=== PATIENT | male | born 1985 | race Caucasian/White ===

== ENCOUNTER 2024-04-25 17:26 | Emergency (ER) | payer BC, SELFPAY ==
[2024-04-25 17:32] VITALS: BP 135/89; PULSE 82; RESP 16; TEMP 36.1; O2SAT 97; BMI 34.3
--- NOTE | 2024-04-25 17:56 | ED_ITS ---
HPI - General Adult General Date Seen: 04/25/24 Chief complaint: Ear/Nose/Throat Problem Stated complaint: Throat hurts, painful to swallow Time Seen by Provider: 04/25/24 17:27 Source: patient Mode of arrival: ambulatory Limitations: no limitations History of Present Illness HPI narrative: Patient is a 38-year-old male with no pertinent medical problems presenting to the emergency department for sore throat. Symptoms have been going on for the past couple days. States the pain is both cells left side. Pain is tolerable at rest but pain does become was 6-7 intensity when he swallow. Also knows the day pain was getting worse or talking but does note he was on a long conference call today. Before today ibuprofen has been his head doing the pain for the most part. Denies fevers, chills. Not aware of any sick contacts. Has not noticed any changes in his voice. Denies difficulty breathing or swallowing. Related Data Home Medications ?Medication ?Instructions ?Recorded ?Confirmed cabergoline 0.5 mg tablet 0.5 mg PO 2XW 10/07/22 10/07/22 Previous Rx's ?Medication ?Instructions ?Recorded epinephrine 0.3 mg/0.3 mL 0.3 mg (0.3 mL) IM ONCE #2 ea 11/22/22 injection, auto-injector Allergies Allergy/AdvReac Type Severity Reaction Status Date / Time No Known Drug Allergies Allergy Verified 04/25/24 18:20 Review of Systems Narrative: Pertinent systems reviewed and were negative unless stated in HPI [facility] PFS Medical History Fever ?R50.9 - Fever, unspecified (ICD-10) Fever ?R50.9 - Fever, unspecified (ICD-10) Sore throat ?J02.9 - Acute pharyngitis, unspecified (ICD-10) Social History Smoking Status: Never smoker Do you use any of these nicotine containing products: None How often do you have a drink containing alcohol: never AUDIT-C Alcohol total score: 0 Non-prescribed substance use: denies use service: No Exam Narrative: Exam Narrative: Const: Well-nourished, Well-developed, in mild distress Eyes: PERRL, no conjunctival injection, and symmetrical lids HENT: Atraumatic external nose and ears. Moist mucous membranes. Uvula midline, no tonsillar exudates or swelling. No mastoid tenderness Neck: Symmetric, trachea midline, No thyromegaly. CVS: RRR, No murmurs or gallops. Peripheral pulses 2+ and equal in all extremities RESP: Unlabored respiratory effort. Clear to auscultation bilaterally. GI: Nontender/Nondistended, No rebound or guarding. MSK:Extremities w/o deformity, Normal Active ROM Skin: Warm, Dry. No rashes or lesions. Neuro: Normal Muscle tone, No focal neurological deficits. Psych: Awake, Alert, & Oriented x3. Appropriate mood and affect. Const: Vital Signs, click to edit/add: Vital Signs - 24 hr 04/25/24 17:32 Temperature 97 F L Pulse Rate [Left R adial] 82 Respiratory Rate 16 Blood Pressure [Ri ght Upper Arm] 135/89 Pulse Oximetry 97 Oxygen Delivery Me thod Room Air Course Vital Signs Vital signs: Initial Vital Signs Temperature 97 F L 04/25/24 17:32 Temperature Source Temporal Artery Scan 04/25/24 17:32 Pulse Rate 82 04/25/24 17:32 Pulse Rhythm Regular 04/25/24 17:32 Respiratory Rate 16 04/25/24 17:32 Blood Pressure 135/89 04/25/24 17:32 Blood Pressure Mean 104 04/25/24 17:32 Pulse Oximetry 97 04/25/24 17:32 Oxygen Delivery Method Room Air 04/25/24 17:32 Vital Signs Temperature 97 F L 04/25/24 17:32 Pulse Rate 82 04/25/24 17:32 Respiratory Rate 16 04/25/24 17:32 Blood Pressure 135/89 04/25/24 17:32 Pulse Oximetry 97 04/25/24 17:32 Oxygen Delivery Method Room Air 04/25/24 17:32 Temperature 97 F L 04/25/24 17:32 Pulse Rate 82 04/25/24 17:32 Respiratory Rate 16 04/25/24 17:32 Blood Pressure 135/89 04/25/24 17:32 Pulse Oximetry 97 04/25/24 17:32 Oxygen Delivery Method Room Air 04/25/24 17:32 Medications Administered Medications: Generic Name Dose Route Start Last Admin Trade Name Freq PRN Reason Stop Dose Admin Dexamethasone 10 mg 04/25/24 18:06 04/25/24 18:14 Dexamethasone 10 Mg/Ml Inj PO 04/25/24 18:07 10 mg ONCE ONE Administration Medical Decision Making [facility] Narrative Medical decision making narrative: Patient is a 38-year-old male presenting for sore throat. Patient is not showing signs of peritonsillar abscess, Almas angina, retropharyngeal abscess,Lemierre disease or any other concerning oral pharynx or deep neck space abscesses. Imaging is not necessary. He does complain about a little bit of pain anterior inferior to his left ear. No mastoid tenderness. Will give a dose of Decadron to help with his sore throat very test liver strep and COVID/flu/RSV. All this came back negative. His vital signs are stable. She is otherwise doing well. Most likely has pharyngitis with viral source. Will be discharged at this time. He is agreeable to this plan. Lab Data Labs: Lab Results 04/25/24 Range/Units 17:55 SARS-CoV-2 (PCR) Negative SARS-CoV-2 (Negative) Influenza Type A (PCR) Negative PCR FLU A (Negative) Influenza Type B (PCR) Negative PCR FLU B (Negative) RSV (PCR) Negative PCR RSV (Negative) Group A Strep DNA NOT DETECTED (Not Detectd) Discharge Plan Discharge Clinical Impression: Sore throat Patient Disposition: Home, Self-Care Condition: Stable Additional Instructions: Take ibuprofen or Aleve for pain. Take it regularly for the next few days and should help with her symptoms. Return for new or worsening symptoms. Prescriptions: No Action cabergoline 0.5 mg tablet 0.5 mg PO 2XW epinephrine 0.3 mg/0.3 mL auto-injector 0.3 mg IM ONCE Qty: 2 0RF Rx Instructions: as a single dose; may repeat once Follow Up/Referrals: Provider,Not a Local [Staff Physician] - Stand Alone Forms: [facility] Info Instructions
--- OUTSIDE RECORDS SUMMARY | 2024-04-25 18:05 | XMS_ITS | Referral Summary ---
Author Organization [facility] Address [address] [place] [address] Care Team Providers Care Sql Server Dba Developer Name Role Phone Sonja Barnes MD Unavailable [phone] Maty Blood MD Unavailable No Ref-Primary, Physician Primary Care Provider Encounters Date Type Department Care Team Description 04/24/2024 MyC Medical Advice [address] [phone] [place] Libia from Last 3 Months Allergies Active Allergy Reactions Criticality Noted Date Comments Phosphorated Carbohyd-Caff Anaphylaxis High 01/05/20 22 Medications Medication Sig Dispensed Refills Start Date End Date Status tadalafil (CIALIS) 20 MG tabletIndications:Erec tile dysfunction, unspecified erectile dysfunction type Take 1 tablet (20 mg) by mouth daily as needed (Ed) 30 tablet 11 01/04/2022 Active cabergoline (DOSTINEX) 0.5 MG tablet Take 0.25 mg by mouth twice a week 04/14/2022 Active Immunizations Name Administration Dates Next Due COVID-19 MONOVALENT 12+ (Pfizer) 07/07/2021,08/0 04/2021 Social History Tobacco Use Types Packs/Day Years Used Date Smoking Tobacco: Never Smokeless Tobacco: Never PHQ-2 Answer Date Recorded PHQ-2 Score 0 01/04/2022 Adolescent Education Answer Date Record ed Getting School Help Needed Not on file 07/27 Sex and Gender Information Value Date Recorded Sex Assigned at Not on file Gender Identity Not on file Sexual Orientation Not on file Last Filed Vital Signs Vital Sign Reading Time Taken Comments Blood Pressure 104/71 05/25/2022 9:57 AM CDT Pulse 78 05/25/2022 9:57 AM CDT Temperature 36.5 ??C (97.7 ??F) 01/04/2022 10:[address] Respiratory Rate 16 01/04/2022 10:50 AM CO FOUNDER Oxygen Saturation 96% 05/25/2022 9:57 AM CDT Inhaled Oxygen Concentration - - Weight 118.8 kg (262 lb) 05/25/2022 9:57 AM CDT Height - - Body Mass Index - - Plan of Treatment Upcoming Encounters Date Type Department Care Team (Late st Contact Info) Description 05/27/2024 5:00 PM CDT Office Visit [address] [phone] Ricco Urbano [address] [place] [address] [phone] 06/10/2024 5:00 PM CDT Office Visit [address] [phone] Ricco Urbano [address] [place], [place] [phone] Care Teams Sql Server Dba Developer Relationship Specialty Start Date End Date No Ref-Primary, Physician PCP - General 03/29/22 Sonja Barnes MD [address] [address] MISHEL WYNNE [id number] Assigned PCP 12/10/21 Maty Blood MD [address] [place] [address] Endocrinology, Diabetes, and Metabolism 03/29/22
--- OUTSIDE RECORDS SUMMARY | 2024-04-25 18:05 | XMS_ITS | Encounter Summary ---
Author Organization [facility] Address [address] [place] [address] Care Team Providers Care Metal Sprayer Machined Parts Name Role Phone Sonja Barnes MD Unavailable [phone] Maty Blood MD Unavailable No Ref-Primary, Physician Primary Care Provider Maty Blood MD Unavailable Encounter Details Date Type Department Care Team (Late st Contact Info) Description 08/30/2022 MyC Medical Advice [address] [phone] Maty Blood MD [address] [place] [address] Social History Tobacco Use Types Packs/Day Years Used Date Smoking Tobacco: Never Smokeless Tobacco: Never PHQ-2 Answer Date Recorded PHQ-2 Score 0 01/04/2022 Sex and Gender Information Value Date Recorded Sex Assigned at Not on file Gender Identity Not on file Sexual Orientation Not on file documented as of this encounter Plan of Treatment Upcoming Encounters Date Type Department Care Team (Late st Contact Info) Description 05/27/2024 5:00 PM CDT Office Visit [facility] [address] [place] [phone] [place] [address] [place] [address] 06/10/2024 5:00 PM CDT Office Visit [facility] [address] [place] [phone] [place] [address] [place] [address] documented as of this encounter Visit Diagnoses Not on filedocumented in this encounter Care Teams Metal Sprayer Machined Parts Relationship Specialty Start Date End Date No Ref-Primary, Physician PCP - General 03/29/22 Sonja Barnes MD [address] [address] Assigned PCP 12/10/21 Maty Blood MD [address] [place], [place] 87[address] Endocrinology, Diabetes, and Metabolism 03/29/22 Maty Blood MD [address] [place], [place] 026795 Assigned Endocrinology Provider 05/26/22 11/27/23 documented as of this encounter
--- OUTSIDE RECORDS SUMMARY | 2024-04-25 18:05 | XMS_ITS | Encounter Summary ---
Author Organization [facility] Address [address] [place] [address] Care Team Providers Care Vice President Financial Name Role Phone Sonja Barnes MD Unavailable [phone] Maty Bolod MD Unavailable No Ref-Primary, Physician Primary Care Provider Encounter Details Date Type Department Care Team (Late st Contact Info) Description 04/24/2024 MyC Medical Advice [facility] [address] [place] [phone] Libia Carvajal Social History Tobacco Use Types Packs/Day Years [...] Description 05/27/2024 5:00 PM CDT Office Visit [facility] [address] [place] [phone] [place] [address] [place] [address] 06/10/2024 5:00 PM CDT Office Visit [facility] [address] [place] [phone] [place] [address] [place] [address] documented as of this encounter Visit Diagnoses Not on filedocumented in this encounter Care Teams Vice President Financial Relationship Specialty Start Date End Date No Ref-Primary, Physician PCP - General 03/29/22 Sonja Barnes MD [address] [address] Assigned PCP 12/10/21 Maty Blood MD [address] [place] [address] Endocrinology, Diabetes, and Metabolism 03/29/22 documented as of this encounter
--- OUTSIDE RECORDS SUMMARY | 2024-04-25 18:05 | XMS_ITS | Clinical Summary ---
Author Organization [facility] Address [address] [place] [address] Care Team Providers Care Cardiac Cath Tech Name Role Phone Sonja Barnes MD Unavailable [phone] Maty Blood MD Unavailable No Ref-Primary, Physician Primary Care Provider Allergies Active Allergy Reactions Criticality Noted Date [...] by mouth twice a week 04/14/2022 Active Encounters Date Type Department Care Team Description 04/24/2024 MyC Medical Advice [address] [phone] Libia Carvajal from Last 3 Months Immunizations Name Administration Dates Next Due COVID-19 MONOVALENT 12+ (Pfizer) 07/07/2021,08/0 04/2021 Family History Medical History Relation Comments No Known Problems Father No Known Problems Mother Relation Status Comments Father Mother Social History Tobacco Use Types Packs/Day Years [...] ST Respiratory Rate 16 01/04/2022 10:50 AM GAS ROLLER OPERATOR Oxygen Saturation 96% 05/25/2022 9:57 AM CDT Inhaled Oxygen Concentration - - Weight 118.8 kg (262 lb) 05/25/2022 9:57 AM CDT Height - - Body Mass Index - - Plan of Treatment Upcoming Encounters Date Type Department Care Team (Late st Contact Info) Description 05/27/2024 5:00 PM CDT Office Visit [address] [phone] [place]co [place] [address] [place] [address] 06/10/2024 5:00 PM CDT Office Visit [address] [phone] [place] [phone] [place] [address] Health Maintenance Due Date Last Done Comments ADVANCE CARE PLANNING 1984 ANNUAL REVIEW OF HM ORDERS 1984 GLUCOSE 1984 YEARLY PREVENTIVE VISIT 1984 HIV SCREENING 1999 HEPATITIS C SCREENING 2002 HEPATITIS B IMMUNIZATION (1 of 3 - 19+ 3-dose series) 2003 DTAP/TDAP/TD IMMUNIZATION (1 - Tdap) 2009 COVID-19 Vaccine (3 - 2022-2 4 season) 2023 07/07/2021, 06/09/2021 PHQ-2 (once per calendar year) 2023 01/04/2022 INFLUENZA VACCINE (Season Ended) 2024 HPV IMMUNIZATION Aged Out No longer e ligible based on patient's age to complete this topic IPV IMMUNIZATION Aged Out No longer e ligible based on patient's age to complete this topic MENINGITIS IMMUNIZATION Aged Out No l onger eligible based on patient's age to complete this topic Pneumococcal Vaccine: Pediatrics (0 to 5 Years) and At-Risk Patients (6 to 64 Years) Aged Out No longer eligible b ased on patient's age to complete this topic RSV MONOCLONAL ANTIBODY Aged Out No l onger eligible based on patient's age to complete this topic Care Teams Cardiac Cath Tech Relationship Specialty Start Date End Date No Ref-Primary, Physician PCP - General 03/29/22 Sonja Barnes MD [address] [facility] [address] [place], [place] 2546[address] Assigned PCP 12/10/21 Maty Blood MD [address] [place], [place] 3660[address] Endocrinology, Diabetes, and Metabolism 03/29/22
--- OUTSIDE RECORDS SUMMARY | 2024-04-25 18:06 | XMS_ITS | Encounter Summary ---
Author Organization [facility] [address] [place] [address] Care Team Providers Care Playground Equipment Erector Name Role Phone Unassigned, Provider Primary Care Provider Unava ilable Reason for Visit * Reason Comments Prior Authorization For Imaging Encounter Details Date Type Department Care Team (Late st Contact Info) Description 04/10/2024 Telephone [facility] Endocrinology [address] [facility] [place] [phone] Venkatesh Castrejon MD [address] [place], [place] [phone] Prior Authorization For Imaging Social History Tobacco Use Types Packs/Day Years Used Date Smoking Tobacco: Never Smokeless Tobacco: Never Sex and Gender Information Value Date Recorded Sex Assigned at Not on file Gender Identity Not on file Sexual Orientation Not on file documented as of this encounter Nursing Notes * Pam Jasso RN - 04/15/2024 8:18 AM CDT Images from the original note were not included. PA approved. Pt has been advised to schedule. See refill TE. Pam Kincaid RN 04/15/2024 8:19 AM * Lito Harding - 04/10/2024 6:25 AM CDT Notify care team PA is still pending for the following service. PA PENDING Date Entered: 04/10/24 6:17 AM CPT: 07996 Procedure: MRI BRAIN STEM W/O & W/DYE DX: D35.2 DOS: 04/12/2024 Inpatient/Outpatient: Outpatient Provider: Venkatesh Castrejon Location: RADIOLOGY Reference #: n/a [facility] Contact/Submission: Mam[facility] Clinicals Sent: 01/02/2023 Venkatesh Castrejon OV, 04/06/2024 & 04/05/2023 Labs, 12/30/2022 MR Brain W/WO report documented in this encounter Plan of Treatment Upcoming Encounters Date Type Department Care Team (Late st Contact Info) Description 09/09/2024 9:00 AM SPECIAL EDUCATION PARAEDUCATOR Appointment [facility] Endocrinology [address] [facility] [place] [phone] Venkatesh Castrejon MD [address] [place] [address] documented as of this encounter Visit Diagnoses Not on filedocumented in this encounter Care Teams Playground Equipment Erector Relationship Specialty Start Date End Date Unassigned, Provider [address] [place] [address] PCP - General Unknown Physician Specialty 04/02/24 documented as of this encounter
--- OUTSIDE RECORDS SUMMARY | 2024-04-25 18:06 | XMS_ITS | Encounter Summary ---
Author Organization [facility] Address [address] [place] [address] Care Team Providers Care Patient Ombudsperson Name Role Phone Unassigned, Provider Primary Care Provider Unava ilable Reason for Visit * Reason Comments Refill cabergoline (DOSTINE X) 0.5 MG tablet [Pharmacy Med Name: CABERGOLINE 0.5MG TABS] Encounter Details Date Type Department Care Team (Late st Contact Info) Description 04/10/2024 Refill [facility] [address] [place] [address]. [place], [place] [phone] Braxton Castrejon MD [address] [place] [phone] Refill (cabergoline (DOSTINEX) 0.5 MG tablet [Pharmacy Med Name: CABERGOLINE 0.5MG TABS]) Social History Tobacco Use Types Packs/Day Years Used Date Smoking Tobacco: Never Smokeless Tobacco: Never Sex and Gender Information Value Date Recorded Sex Assigned at Not on file Gender Identity Not on file Sexual Orientation Not on file documented as of this encounter Nursing Notes * Pam Jasso RN - 04/13/2024 1:41 PM CDT Medication refilled per standing order. Pam Kincaid RN 04/13/2024 1:41 PM * Websjennifer, [facility] [employer] - 04/10/2024 1:33 PM CDT cabergoline (DOSTINEX) 0.5 MG tablet [Pharmacy Med Name: CABERGOLINE 0.5MG TABS] Hyperprolactinemia -> An office visit is overdue (performed over 15 months ago, required every 12 months). Last qualifying visit: 01/02/2023 (in Endocrinology with BRAXTON CASTREJON) Next scheduled visit: 09/09/2024 (in Endocrinology with BRAXTON CASTREJON) Last ordered by BRAXTON CASTREJON: 01/02/2024 (99 days ago) QTY: 24, Refills: 0, Sig: take 1 tablet (0.5 mg) by mouth two times a week. (changed but equivalent) Prolactin Level (serum): 7.2 ng/mL on 04/06/2024 [facility] Embedded Refills, Reference: [id number], 04/10/2024 1:33:27 PM CDT, Pool: OSWALDO SUILL RN ([id number]) * Chance Mathew - 04/10/2024 1:33 PM CDT The following lab order(s) may be associated with the Result Note below: PROLACTIN Notes recorded by Pam Kincaid on 04/09/2024 at 9:50 AM CDT Released to OPS. * Chance Mathew - 04/10/2024 1:33 PM CDT The following lab order(s) may be associated with the following Patient Result Comment (Entered by Pam Jasso, RN at 04/09/2024 9:50 AM): PROLACTIN Labs are stable or at goal. Continue current treatment plan and follow up as recommended at the last visit. Please e-mail or call the clinic at [phone] with any questions.Braxton Castrejon MD/zainab documented in this encounter Plan of Treatment Upcoming Encounters Date Type Department Care Team (Late st Contact Info) Description 09/09/2024 9:00 AM PERSONAL INJURY LITIGATION PARALEGAL Appointment [facility] Endocrinology [address] [facility] [place] [phone] Braxton Castrejon MD [address] [place] [phone] documented as of this encounter Visit Diagnoses Diagnosis Prolactinoma ([facility]) Benign neoplasm of pituitary gland and craniopharyngeal duct (pouch) documented in this encounter Care Teams Patient Ombudsperson Relationship Specialty Start Date End Date Unassigned, Provider [address] [place] [address] PCP - General Unknown Physician Specialty 04/02/24 documented as of this encounter
--- OUTSIDE RECORDS SUMMARY | 2024-04-25 18:06 | XMS_ITS | Encounter Summary ---
Author Organization [facility] Address [address] [address] Care Team Providers Care Physician Scribe Name Role Phone Unassigned, Provider Primary Care Provider Unava ilable Reason for Visit * Reason Comments Medication Questions Entered automatical ly based on patient selection in [employer]. Encounter Details Date Type Department Care Team (Late Contact Info) Description 04/01/2024 8:45 PM CDT E-Visit [facility] Endocrinology [address] [place] [phone] Venkatesh Castrejon MD [address] [place], [place] [phone] Chief Comp: Medication Questions Social History Tobacco Use Types Packs/Day Years Used Date Smoking Tobacco: Never Smokeless Tobacco: Never Sex and Gender Information Value Date Recorded Sex Assigned at Not on file Gender Identity Not on file Sexual Orientation Not on file documented as of this encounter Plan of Treatment Upcoming Encounters Date Type Department Care Team (Late Contact Info) Description 09/09/2024 9:00 AM PEANUT SEPARATOR Appointment [facility] Endocrinology [address] [place] [address] Venkatesh Castrejon MD [address] [place] [address] documented as of this encounter Visit Diagnoses Not on filedocumented in this encounter Care Teams Physician Scribe Relationship Specialty Start Date End Date Unassigned, Provider [address] [place] [address] PCP - General Unknown Physician Specialty 04/02/24 documented as of this encounter
--- OUTSIDE RECORDS SUMMARY | 2024-04-25 18:06 | XMS_ITS | Encounter Summary ---
Author Organization [facility] Address [address] [place] [address] Care Team Providers Care Director Of Surgery Name Role Phone Sonja Barnes MD Unavailable [phone] Maty Blood MD Unavailable No Ref-Primary, Physician Primary Care Provider Maty Blood MD Unavailable Encounter Details Date Type Department Care Team (Late st Contact Info) Description 05/02/2022 MyC Medical Advice [address] [phone] Td Harding Social History Tobacco Use Types Packs/Day Years Used Date Smoking Tobacco: Never Assessed PHQ-2 Answer Date Recorded PHQ-2 Score 0 01/04/2022 Sex and Gender Information Value Date Recorded Sex Assigned at Not on file Gender Identity Not on file Sexual Orientation Not on file documented as of this encounter Miscellaneous Notes * Telephone Encounter - Td Harding - 05/22/2022 12:52 PM CDT Sooner appointment. Mychart sent. Annalise Harding [facility] Adult Endocrinology [facility] documented in this encounter Plan of Treatment Upcoming Encounters Date Type Department Care Team (Late st Contact Info) Description 05/27/2024 5:00 PM CDT Office Visit [address] [phone] [place] [address] [place] [address] 06/10/2024 5:00 PM CDT Office Visit [facility] [address] [place] [phone] YolieRicco krause [address] [place] [address] documented as of this encounter Visit Diagnoses Not on filedocumented in this encounter Care Teams Director Of Surgery Relationship Specialty Start Date End Date No Ref-Primary, Physician PCP - General 03/29/22 Sonja Barnes MD [address] [place] [address] Assigned PCP 12/10/21 Maty Blood MD [address] [place] [phone] Endocrinology, Diabetes, and Metabolism 03/29/22 Maty Blood MD [address] [place] [phone] Assigned Endocrinology Provider 05/26/22 11/27/23 documented as of this encounter
--- OUTSIDE RECORDS SUMMARY | 2024-04-25 18:06 | XMS_ITS | Encounter Summary ---
Author Organization [facility] Address [address] [address] Care Team Providers Care Billing Adjudicator Name Role Phone Unassigned, Provider Primary Care Provider Unava ilable Encounter Details Date Type Department Care Team (Late st Contact Info) Description 04/06/2024 12:20 PM CDT Lab Visit [facility] [address] [place] [address] Prolactinoma (HRC) Social History Tobacco Use Types Packs/Day Years Used Date Smoking Tobacco: Never Smokeless Tobacco: Never Sex and Gender Information Value Date Recorded Sex Assigned at Not on file Gender Identity Not on file Sexual Orientation Not on file documented as of this encounter Plan of Treatment Upcoming Encounters Date Type Department Care Team (Late st Contact Info) Description 09/09/2024 9:00 AM MULE DEVELOPER Appointment [facility] [address] [facility] [place] [address] Venkatesh Castrejon MD [address] [place] [address] documented as of this encounter Procedures Procedure Name Priority Date/Time Associated Diagnosis Comments PROLACTIN WITH REFLEX TO MACROPROLACTIN Routine 04/06/2024 12:18 PM CDT Prolactinoma (HRC) PROLACTIN Routine 04/06/2024 12:18 PM CDT Prolactinoma (HRC) documented in this encounter Results * Prolactin (04/06/2024 12:18 PM CDT) Prolactin 7.2 2.5 - 18.3 ng/mL 04/07/2024 12:17 PM CDT [facility] Blood Venipuncture / Unknown 04/06/2024 12:18 PM CDT 04/06/2024 12:18 PM CDT Venkatesh Castrejon MD LAB_1 [facility] [address] [id number] documented in this encounter Visit Diagnoses Diagnosis Prolactinoma (HRC) Benign neoplasm of pituitary gland and craniopharyngeal duct (pouch) documented in this encounter Care Teams Billing Adjudicator Relationship Specialty Start Date End Date Unassigned, Provider [address] [place] [address] PCP - General Unknown Physician Specialty 04/02/24 documented as of this encounter
--- OUTSIDE RECORDS SUMMARY | 2024-04-25 18:06 | XMS_ITS | Clinical Summary ---
Author Organization [facility] Address [address] [place] [address] Care Team Providers Care Roll Changer Name Role Phone Unassigned, Provider Primary Care Provider Unava ilable Source Comments You are receiving this document as you are listed as the primary care provider,follow-up provider, or the patient has been referred to you for consultation.This is in compliance with the Medicare and[facility] EHR Incentive Program,which states Providers who transition their patient to another setting of careor provider of care or refers their patient to another provider of care shouldprovide summary care record for each transition of care or referral. [facility] Allergies No known active allergies Medications Medication Sig Dispensed Refills Start Date End Date Status Tadalafil (CIALIS) 20 MG tabletIndication s:Prolactinoma (HRC) Take 1 tablet by mouth daily as needed for ED 30 Tablet 1 09/12/2023 Active diazePAM (VALIUM) 5 MG tablet Take 20 minutes prior to MRI 1 Tablet 04/02/2024 Active cabergoline (DOSTINEX) 0.5 MG tabletIndication s:Prolactinoma (HRC) TAKE 1 TABLET BY MOUTH TWICE WEEKLY 24 Tablet 1 04/13/2024 Active diazePAM (VALIUM) 5 MG tablet Take 20 minutes prior to MRI 1 Tablet 12/25/2022 4 Discontinued(*Med change OR same med OR reorder, new dose/directions) cabergoline (DOSTINEX) 0.5 MG tabletIndication s:Prolactinoma (HRC) Take 1 Tablet (0.5 mg) by mouth two times a week. 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 [address] [place] [address]. [place] [address] Venkatesh Castrejon MD Refill (cabergoline (DOSTINEX) 0.5 MG tablet [Pharmacy Med Name: CABERGOLINE 0.5MG TABS]) 04/10/2024 [place]phone [facility] [place] [facility] [address] [facility] [place] [address] Venkatesh Castrejon MD Prior Authorization For Imaging 04/06/2024 12:20 PM CDT Lab Visit [facility] [address] [place] [address] Prolactinoma (HRC) 04/02/2024 Telephone [facility] Call Center [address] [facility] [place] [address] Venkatesh Castrejon MD 04/02/2024 E-Visit Specialty [place] [address] [place] [address] Mychart, Generic Provider 04/01/2024 8:45 PM CDT [place] [facility] [address] [facility] [place] [address] Venkatesh Castrejon MD Chief Comp: Medication Questions 03/28/2024 [address] [facility] [address] [place] [address]. [place] [address] Venkatesh Castrejon MD Refill (cabergoline (DOSTINEX) 0.5 MG tablet [Pharmacy Med Name: CABERGOLINE 0.5MG TABS]) from Last 3 Months Social History Tobacco Use Types Packs/Day Years Used Date Smoking Tobacco: Never Smokeless Tobacco: Never Sex and Gender Information Value Date Recorded Sex Assigned at Not on file Gender Identity Not on file Sexual Orientation Not on file Last Filed Vital Signs Vital Sign Reading Time Taken Comments Blood Pressure 122/80 01/02/2023 12:30 PM HOME DEMONSTRATION AGENT Pulse 91 01/02/2023 12:30 PM HOME DEMONSTRATION AGENT Temperature - - Respiratory Rate - - Oxygen Saturation - - Inhaled Oxygen Concentration - - Weight 125.1 kg (275 lb 12.8 oz) 2022 12:30 PM HOME DEMONSTRATION AGENT Height 189.2 cm (6' 2.5) 02/05/2022 3:55 PM CDT Body Mass Index 34.94 02/05/2022 3:55 PM CDT Plan of Treatment Upcoming Encounters Date Type Department Care Team (Late st Contact Info) Description 09/09/2024 9:00 AM HOME DEMONSTRATION AGENT [place]ointment [facility] [place] [facility] [address] [facility] [place] [address] Venkatesh Castrejon MD [address] [place], [place] [phone] Health Maintenance Due Date Last Done Comments Hep C Screening (Preventive Services) 1984 HIV Screening (Preventive Services) 2000 Adult Preventive Visit 2002 DTaP/Tdap/Td (1 - Tdap) 2003 HepB (1) 2003 Cholesterol 2019 COVID-19 Vaccine (3 - 2022-2 4 season) 2023 07/07/2021, 06/09/2021 Influenza (Season Ended) 2024 Zoster/Shingles (1 of 2) 2034 HPV Vaccine Aged Out No longer eligi ble based on patient's age to complete this topic HepA Aged Out No longer eligi ble based on patient's age to complete this topic Hib Aged Out No longer eligi ble based on patient's age to complete this topic IPV (Polio) Aged Out No longer eligi ble based on patient's age to complete this topic MCV4 Aged Out No longer eligi ble based on patient's age to complete this topic Pneumococcal Aged Out No longer eligi ble based on patient's age to complete this topic Procedures Procedure Name Priority Date/Time Associated Diagnosis Comments MR BRAIN W/WO IV CONT Routine 04/12/2024 4:23 PM CDT Macroprolactinoma (HRC) PROLACTIN Routine 04/06/2024 12:18 PM CDT Prolactinoma (HRC) PROLACTIN WITH REFLEX TO MACROPROLACTIN Routine 04/06/2024 12:18 PM CDT Prolactinoma (HRC) from Last 3 Months Results * MR Brain W/WO IV Cont (04/12/2024 4:23 PM CDT) Anatomical Region Laterality Modality Head Magnetic Resonan ce 04/12/2024 3:29 PM CDT Impressions 04/14/2024 10:37 AM CDT INDICATION: macroprolactinoma ?? TECHNIQUE: ??MRI of the head with and without contrast using sella protocol, 13 mL GADOBUTROL 1 MMOL/ML IV SOLN. COMPARISON: Brain MRI 12/30/2022 FINDINGS: ?? Brain: No acute ischemia, parenchymal edema, mass effect, midline shift, or hydrocephalus. The ventricular system is unremarkable. Mild periventricular and subcortical white matter signal abnormalities represent a nonspecific finding. Major intracranial vascular flow voids are preserved. Orbital contents are grossly unremarkable. Partial paranasal sinus opacification with a small layering right maxillary sinus air- fluid level. Sella: Previously described focus of T2 hyperintensity and associated hypoenhancement involving the right lateral sella again measures up to approximately 10 mm in maximum dimension, consider series 14, image 6, and series 16, image 5. There is possible mild cavernous sinus extension, which is grossly unchanged when compared to the prior study. No suprasellar extension. The infundibulum is positioned at the midline and is normal in caliber. Optic chiasm is unremarkable. IMPRESSION: ?? 1. Stable 10 mm probable right lateral pituitary adenoma. 2. Mild periventricular and subcortical white matter signal abnormalities are again noted, a nonspecific finding, which may be secondary to previous inflammation, demyelination, remote trauma or infection, or early chronic microvascular ischemic changes. Narrative Procedure Note Freddie Dsouza MD - 04/14/2024 IMPRESSION INDICATION: macroprolactinoma TECHNIQUE: MRI of the head with and without contrast using sellaprotocol, 13 mL GADOBUTROL 1 MMOL/ML IV SOLN. COMPARISON: Brain MRI 12/30/2022 FINDINGS: Brain: No acute ischemia, parenchymal edema, mass effect, midline shift, orhydrocephalus. The ventricular system is unremarkable. Mildperiventricular and subcortical white matter signal abnormalitiesrepresent a nonspecific finding. Major intracranial vascular flow voidsare preserved. Orbital contents are grossly unremarkable. Partialparanasal sinus opacification with a small layering right maxillary sinusair-fluid level. Sella: Previously described focus of T2 hyperintensity and associatedhypoenhancement involving the right lateral sella again measures up toapproximately 10 mm in maximum dimension, consider series 14, image 6, andseries 16, image 5. There is possible mild cavernous sinus extension,which is grossly unchanged when compared to the prior study. Nosuprasellar extension. The infundibulum is positioned at the midline andis normal in caliber. Optic chiasm is unremarkable. IMPRESSION: 1. Stable 10 mm probable right lateral pituitary adenoma. 2. Mild periventricular and subcortical white matter signal abnormalitiesare again noted, a nonspecific finding, which may be secondary to previousinflammation, demyelination, remote trauma or infection, or early chronicmicrovascular ischemic changes. Venkatesh Castrejon MD RAD MRI * Prolactin (04/06/2024 12:18 PM CDT) Prolactin 7.2 2.5 - 18.3 ng/mL 04/07/2024 12:17 PM CDT [facility] Blood Venipuncture / Unknown 04/06/2024 12:18 PM CDT 04/06/2024 12:18 PM CDT Venkatesh Castrejon MD LAB_1 [facility] [address] [address], [facility] from Last 3 Months Care Teams Roll Changer Relationship Specialty Start Date End Date Unassigned, Provider [address] [place] [address] PCP - General Unknown Physician Specialty 04/02/24
--- OUTSIDE RECORDS SUMMARY | 2024-04-25 18:06 | XMS_ITS | Encounter Summary ---
Author Organization [facility] Address [address], [place] [address] Care Team Providers Care Gear Hobber Name Role Phone Unassigned, Provider Primary Care Provider Unava ilable Reason for Visit * Procedure/Equipment (Routine) - Closed Specialty Diagnoses / Procedures Referred By Contac t Referred To Contact Radiology PN Diagnoses Macroprolactinoma (HRC) Procedures MR Brain W/WO IV Cont Venkatesh Castrejon MD [address] [place] [address] Radiology [address] [facility] [place] [address] Referral ID Status Reason Start Date Expiration Date Visits Re quested Visits Authorized [id number] Closed 04/08/2024 06/06/2024 1 1 Encounter Details Date Type Department Care Team (Latest Contact Info) Description 04/12/2024 4:00 PM CDT Ancillary Procedure [facility] [address] [place] [address] [place] [address] Venkatesh Castrejon MD [address] [place] [address] Macroprolactinoma (HRC) Social History Tobacco Use Types Packs/Day Years Used Date Smoking Tobacco: Never Smokeless Tobacco: Never Sex and Gender Information Value Date Recorded Sex Assigned at Not on file Gender Identity Not on file Sexual Orientation Not on file documented as of this encounter Plan of Treatment Upcoming Encounters Date Type Department Care Team (Late st Contact Info) Description 09/09/2024 9:00 AM DIRECTOR STYLE Appointment [facility] [address] [facility] [place] [address] Venkatesh Castrejon MD [address] [place] [address] documented as of this encounter Procedures Procedure Name Priority Date/Time Associated Diagnosis Comments MR BRAIN W/WO IV CONT Routine 04/12/2024 4:23 PM CDT Macroprolactinoma (HRC) documented in this encounter Results * MR Brain W/WO IV Cont [...] ischemic changes. Venkatesh Castrejon MD RAD MRI documented in this encounter Visit Diagnoses Diagnosis Macroprolactinoma (HRC) Benign neoplasm of pituitary gland and craniopharyngeal duct (pouch) documented in this encounter Administered Medications Inactive Administered Medications - up to 3 most recent administrations Medication Order MAR Action Action Date Dose Rate Site gadobutrol (GADAVIST) 1 MMOL/ML injection 13 mL 13 mL, Intravenous, ONCE, On 04/12/24 at 1530, For 1 dose Given 04/12/2024 4:12 PM CDT 13 mL sodium chloride 0.9% injection 20 mL 20 mL, Intravenous, ONCE, On 04/12/24 at 1530, For 1 dose Given 04/12/2024 4:12 PM CDT 20 mL documented in this encounter Care Teams Gear Hobber Relationship Specialty Start Date End Date Unassigned, Provider [address] [place] [address] PCP - General Unknown Physician Specialty 04/02/24 documented as of this encounter
--- OUTSIDE RECORDS SUMMARY | 2024-04-25 18:06 | XMS_ITS | Encounter Summary ---
Author Organization [facility] Address [address] [place] [address] Care Team Providers Care Folder Hand Name Role Phone Sonja Barnes MD Unavailable [phone] Maty Blood MD Unavailable No Ref-Primary, Physician Primary Care Provider Maty Blood MD Unavailable Encounter Details Date Type Department Care Team (Late st Contact Info) Description 05/23/2022 MyC Medical Advice [address] [address] Maty Blood MD [address] [place] [address] Social History Tobacco Use Types Packs/Day Years Used Date Smoking Tobacco: Never Assessed PHQ-2 Answer Date Recorded PHQ-2 Score 0 01/04/2022 Sex and Gender Information Value Date Recorded Sex Assigned at Not on file Gender Identity Not on file Sexual Orientation Not on file COVID-19 Exposure Response Date Recorded In the last 10 days, have yo u been in contact with someone who was confirmed or suspected to have Coronavirus/COVID-19? No / Unsure 05/25/2022 9:40 AM CDT documented as of this encounter Plan of Treatment Upcoming Encounters Date Type Department Care Team (Late st Contact Info) Description 05/27/2024 5:00 PM CDT Office Visit [address] [address] [place] [address] [place] [address] 06/10/2024 5:00 PM CDT Office Visit [facility] [address] [place] [address] YolieRicco kate [id number] [place] [address] documented as of this encounter Visit Diagnoses Not on filedocumented in this encounter Care Teams Folder Hand Relationship Specialty Start Date End Date No Ref-Primary, Physician PCP - General 03/29/22 Sonja Barnes MD [address] [address] Assigned PCP 12/10/21 Maty Blood MD [address] [place] [address] Endocrinology, Diabetes, and Metabolism 03/29/22 Maty Blood MD [address] [place] [id number] Assigned Endocrinology Provider 05/26/22 11/27/23 documented as of this encounter
--- OUTSIDE RECORDS SUMMARY | 2024-04-25 18:06 | XMS_ITS | Encounter Summary ---
Author Organization [facility] Address [address] [place] [address] Care Team Providers Care Broadcast Checker Name Role Phone Unassigned, Provider Primary Care Provider Unava ilable Encounter Details Date Type Department Care Team (Late st Contact Info) Description 04/02/2024 Telephone [facility] Call Center [address] [facility] [place] [address] Venkatesh Castrejon MD [address] [place], [place] [phone] Social History Tobacco Use Types Packs/Day Years Used Date Smoking Tobacco: Never Smokeless Tobacco: Never Sex and Gender Information Value Date Recorded Sex Assigned at Not on file Gender Identity Not on file Sexual Orientation Not on file documented as of this encounter Plan of Treatment Upcoming Encounters Date Type Department Care Team (Late st Contact Info) Description 09/09/2024 9:00 AM OBSERVATION ASSISTANT [place] [facility] [address] [facility] [place] [address] Venkatesh Castrejon MD [address] [place], [place] [phone] documented as of this encounter Visit Diagnoses Not on filedocumented in this encounter Care Teams Broadcast Checker Relationship Specialty Start Date End Date Unassigned, Provider [address] [place] [address] PCP - General Unknown Physician Specialty 04/02/24 documented as of this encounter
--- OUTSIDE RECORDS SUMMARY | 2024-04-25 18:06 | XMS_ITS | Encounter Summary ---
Author Organization [facility] Address [address] [place] [address] Care Team Providers Care Disposal Worker Name Role Phone Unassigned, Provider Primary Care Provider Unava ilable Encounter Details Date Type Department Care Team (Late st Contact Info) Description 04/02/2024 E-Visit Specialty Center [address] Endocrinology Clinic [address] [place] [address]. [place], [place] [phone] [place] [address] Social History Tobacco Use Types Packs/Day Years Used Date Smoking Tobacco: Never Smokeless Tobacco: Never Sex and Gender Information Value Date Recorded Sex Assigned at Not on file Gender Identity Not on file Sexual Orientation Not on file documented as of this encounter Plan of Treatment Upcoming Encounters Date Type Department Care Team (Late st Contact Info) Description 09/09/2024 9:00 AM BOOT AND SHOE REPAIRMAN Appointment [facility] [address] [facility] [place] [phone] Venkatesh Castrejon MD [address] [place] [address] documented as of this encounter Visit Diagnoses Not on filedocumented in this encounter Care Teams Disposal Worker Relationship Specialty Start Date End Date Unassigned, Provider [address] [place] [address] PCP - General Unknown Physician Specialty 04/02/24 documented as of this encounter
--- OUTSIDE RECORDS SUMMARY | 2024-04-25 18:06 | XMS_ITS | Clinical Summary ---
Author Organization [facility] Address [place], [place] [address] Care Team Providers Care Tank House Operator Helper Name Role Phone Pcp, No Primary Care Provider Unavailabl e Allergies Active Allergy Reactions Criticality Noted Date Comments Unlisted Allergen (Include Detail In Comments) Anaphylaxis High 06/02/2018 Coca cola-lips puff up and shock Medications No known medications Family History Medical History Relation Name Comments Good Health Father Diabetes type II Mother Relation Name Status Comments Brother 1 Alive Brother 2 Alive Father Alive Mother Alive Social History Tobacco Use Types Packs/Day Years Used Date Smoking Tobacco: Never Smokeless Tobacco: Never Tobacco Cessation:Counseling Given: Yes Alcohol Use Standard Drinks/Week Comments No 0 (1 standard drink = 0.6 oz pur e alcohol) PHQ-2 Answer Date Recorded PHQ-2 Score 3 01/06/2019 Sex and Gender Information Value Date Recorded Sex Assigned at Not on file Gender Identity Not on file Sexual Orientation Not on file Obstetrics History Last Filed Vital Signs Vital Sign Reading Time Taken Comments Blood Pressure 122/82 06/02/2018 3:09 PM CDT Pulse 72 06/02/2018 3:09 PM CDT Temperature 36.4 ??C (97.6 ??F) 06/02/2018 3:09 PM CD T Respiratory Rate - - Oxygen Saturation 98% 06/02/2018 3:09 PM CDT Inhaled Oxygen Concentration - - Weight 102.3 kg (225 lb 9.6 oz) 06/02/2018 3:09 PM CDT Height 185.3 cm (6' 0.95) 06/02/2018 3:09 PM CD T Body Mass Index 29.8 06/02/2018 3:09 PM CDT Plan of Treatment Health Maintenance Due Date Last Done Comments Tdap 1995 HIV for age 15-65 1999 Hepatitis C screening for ag e 18-79 2002 Tetanus booster 2004 BMI (ht and wt on same day) for age 18+ 06/02/2019 06/02/2018 Depression screening for age 12+ 06/03/2019 06/03/2018, 06/02/2018 Lipids for age 35-44 06/02/2023 06/02/2018 COVID-19 vaccine series (2022-24 season) 2023 Influenza for age 9-49 07/05/2024 Pneumococcal series for age 6-64 Aged Out No longer eligible b ased on patient's age to complete this topic Procedures Procedure Name Priority Date/Time Associated Diagnosis Comments LIPID PANEL W REFLEX MEASURED LDL Routine 06/02/2018 3:52 PM CDT Screening for hyperlipidemia from Last 3 Months or Most Recently Relevant to Health Maintenance Results * (ABNORMAL) LIPID PANEL W REFLEX MEASURED LDL (06/02/2018 3:52 PM CDT) CHOLESTEROL,TOTAL 307(H) 100 - 199 mg/dL 06/02/2018 7:57 PM CDT [facility] TRIGLYCERIDES 171(H) <150 mg/dL 06/02/2018 7:57 PM CDT [facility] HDL CHOLESTEROL 40(L) >40 mg/dL 8 7:57 PM CDT [facility] NON-HDL CHOLESTEROL 267(H) <145 mg/dl 06/02/2018 7:57 PM CDT [facility] CHOL/HDL RATIO 7.68(H) <4.50 06/02/2018 7:57 PM CDT [facility] LDL CHOLESTEROL 233(H) <=130 mg/dL 06/02/2018 7:57 PM CDT [facility] PROVIDER ORDERED STATUS RANDOM 06/02/2018 7:57 PM CDT [facility] Blood BLOOD SPECIMEN / Unknown Venipuncture / Unknown 06/02/2018 3:52 PM CDT 06/02/2018 3:53 PM CDT Sebastian Calvert DO CHEMISTR[facility] [address] [place] [address], from Last 3 Months or Most Recently Relevant to Health Maintenance Care Teams Tank House Operator Helper Relationship Specialty Start Date End Date Pcp, No . PCP - General 12/26/22
--- OUTSIDE RECORDS SUMMARY | 2024-04-25 18:06 | XMS_ITS | Encounter Summary ---
Author Organization [facility] Address [address] [place] [address] Care Team Providers Care Communications Intern Name Role Phone Unassigned, Provider Primary Care Provider Unava ilable Reason for Visit * Reason Comments Refill cabergoline (DOSTINE X) 0.5 MG tablet [Pharmacy Med Name: CABERGOLINE 0.5MG TABS] Encounter Details Date Type Department Care Team (Late st Contact Info) Description 03/28/2024 [facility] [address] [place] [address]. [place], [place] [id number] Braxton Castrejon MD [address] [place] [phone] Refill (cabergoline (DOSTINEX) 0.5 MG tablet [Pharmacy Med Name: CABERGOLINE 0.5MG TABS]) Social History Tobacco Use Types Packs/Day Years Used Date Smoking Tobacco: Never Smokeless Tobacco: Never Sex and Gender Information Value Date Recorded Sex Assigned at Not on file Gender Identity Not on file Sexual Orientation Not on file documented as of this encounter Nursing Notes * Pam Jasso RN - 04/16/2024 2:14 PM CDT Script was sent on 04/13/24. Pam Kincaid RN 04/16/2024 2:15 PM * Minoo Hernandez - 04/14/2024 12:35 PM CDT Labs completed 04/06 and follow up scheduled for September. * Minoo Hernandez - 04/02/2024 12:16 PM CDT Medication Refill - Overdue Visit Called patient, was: Unable to reach patient 1st call attempted. Left message to call back and OPS message sent. Minoo Hernandez * Pam Jasso RN - 03/31/2024 2:43 PM CDT Further Assistance Needed on Refill from Negative Cutter Patient is due for Qualifying Visit and lab(s). Medication is still pending. Patient is due for an Office/Video Visit in the next 90 days. Call Patient and document using [employer]. After attempting to schedule patient: If appointment is scheduled within 60 days: Please route to: Primary Care: Refill nuclear powerplant supervisor Specialty Care: Refill nuclear powerplant supervisor If unable to schedule appointment: Please route to Requested Prescriptions Pending Prescriptions Disp Refills cabergoline (DOSTINEX) 0.5 MG tablet [Pharmacy Med Name: CABERGOLINE 0.5MG TABS] 26 Tablet 0 Sig: TAKE 1 TABLET BY MOUTH TWICE WEEKLY Pam Kincaid RN 03/31/2024 2:44 PM * Chance Mathewwcomm - 03/28/2024 1:36 PM CDT cabergoline (DOSTINEX) 0.5 MG tablet [Pharmacy Med Name: CABERGOLINE 0.5MG TABS] Hyperprolactinemia -> An office visit is overdue (performed over 15 months ago, required every 12 months). Last qualifying visit: 01/02/2023 (in Endocrinology with BRAXTON CASTREJON) Next scheduled visit: None Last ordered by BRAXTON CASTREJON: 01/02/2024 (86 days ago) QTY: 24, Refills: 0, Sig: take 1 tablet (0.5 mg) by mouth two times a week. (changed but equivalent) Prolactin Level (serum): 6.4 ng/mL on 04/05/2023 [facility] Embedded Refills, Reference: [id number], 03/28/2024 1:36:45 PM CDT, Pool: ENDO REFILL RN ([id number]) * Chance Mathew - 03/28/2024 1:36 PM CDT The following lab order(s) may be associated with the Result Note below: PROLACTIN Notes recorded by Braxton Castrejon on 04/10/2023 at 8:25 AM CDT Testosterone remains low, and in the setting of a normal prolactin with low normal LH and FSH and low SHBG, this is due to overweight. With weight loss your testosterone can improve. If you ever wantto consider testosterone in the future when no longer planning for kids let me know Braxton Castrejon MD 04/10/2023, 8:25 AM * Chance Mathew - 03/28/2024 1:36 PM CDT The following lab order(s) may be associated with the following Patient Result Comment (Entered by Braxton Castrejon MD at 04/10/2023 8:25 AM): PROLACTIN Testosterone remains low, and in the setting of a normal prolactin with low normal LH and FSH and low SHBG, this is due to overweight. With weight loss your testosterone can improve. If you ever wantto consider testosterone in the future when no longer planning for kids let me knowSahuma Castrejon MD 04/10/2023, 8:25 AM documented in this encounter Plan of Treatment Upcoming Encounters Date Type Department Care Team (Late st Contact Info) Description 09/09/2024 9:00 AM ACTING MANAGER Appointment [facility] Endocr[facility]ology [address] [facility] [place] [address] Braxton Castrejon MD [address] [place] [phone] documented as of this encounter Visit Diagnoses Diagnosis Prolactinoma (HRC) Benign neoplasm of pituitary gland and craniopharyngeal duct (pouch) documented in this encounter Care Teams Communications Intern Relationship Specialty Start Date End Date Unassigned, Provider [address] [place] [address] PCP - General Unknown Physician Specialty 04/02/24 documented as of this encounter
[2024-04-25] MEDS: dexAMETHasone 10 MG/ML inj PO (18:14)
[2024-04-25 18:26] LABS: Strep A DNA Probe* NOT DETECTED (Not Detectd)
[2024-04-25 18:39] LABS: PCR FLU A Negative PCR FLU A (Negative); PCR FLU B Negative PCR FLU B (Negative); PCR RSV Negative PCR RSV (Negative); SARS PCR* Negative SARS-CoV-2 (Negative)
== END 2024-04-25 18:55 | disposition home or self-care (01) ==
PROVIDERS: Emergency Provider Student in an Organized Health Care Education/Training Program; PCP Family Medicine
DX: J02.9 Acute pharyngitis, unspecified (principal)
CPT/HCPCS: 87631; 87651; 99282; 99283; J1100

== ENCOUNTER 2024-12-02 10:51 | Emergency (ER) | payer BC, SELFPAY ==
[2024-12-02 10:57] VITALS: BP 110/70; PULSE 87; RESP 18; TEMP 37.1; O2SAT 95; BMI 35.0
--- NOTE | 2024-12-02 11:15 | ED.GENADULT ---
HPI - General Adult General Chief complaint: Rib Pain Stated complaint: fall down stairs Time Seen by Provider: 12/02/24 11:16 History of Present Illness HPI narrative: yesterday fell down stairs, hit head on wall. L ribs painful, difficult to move. has been trying to get over fl for 3 weeks. coughing making pain worse. took motrin with no relief. 39-year-old man presenting to the emergency department following a fall yesterday down some stairs. Did strike his head on the wall in the process. Left ribs in particular are very painful. Deep breath hurts. Just generally very sore to move. Has had influenza like symptoms over the last 3 weeks and coughing is definite exacerbating his pain. Is not finding relief of pain with ibuprofen. There was no loss of consciousness in this fall. Not really with neck or back pain otherwise. No abdominal pain. Related Data Home Medications ?Medication ?Instructions ?Recorded ?Confirmed cabergoline 0.5 mg tablet 0.5 mg PO 2XW 10/07/22 12/02/24 ascorbate calcium (vitamin C) PO 12/02/24 12/02/24 cholecalciferol (vitamin D3) PO 12/02/24 12/02/24 Previous Rx's ?Medication ?Instructions ?Recorded epinephrine 0.3 mg/0.3 mL 0.3 mg (0.3 mL) IM ONCE #2 ea 11/22/22 injection, auto-injector Allergies Allergy/AdvReac Type Severity Reaction Status Date / Time No Known Drug Allergies Allergy Verified 12/02/24 10:24 Review of Systems Status of ROS: Reports: 6 or more systems reviewed and unremarkable except as noted in History and below [facility] Medical History Fever ?R50.9 - Fever, unspecified (ICD-10) Fever ?R50.9 - Fever, unspecified (ICD-10) Sore throat ?J02.9 - Acute pharyngitis, unspecified (ICD-10) Social History Smoking Status: Never smoker Do you use any of these nicotine containing products: None How often do you have a drink containing alcohol: never AUDIT-C Alcohol total score: 0 Non-prescribed substance use: denies use service: No Exam Narrative: Exam Narrative: Pleasant. Tall. Clearly uncomfortable. Transitions with pain. Nasopharyngeal congestion. Cranial nerves 2-12 intact. Pupils equal. Head is with small swelling at the left parietal area. External ear canals or free fluid. There is no Steward sign. Some soreness to left cervical musculature. No midline neck tenderness. No midline back tenderness. His most sore to palpation at the left mid axillary line mid ribs. Tender with oppositional compression here as well. I do not see bruising on the surface. Lungs are clear. Respiratory effort causes some discomfort. Heart in regular rate and rhythm. Const: Vital Signs, click to edit/add: Vital Signs - 24 hr 12/02/24 10:57 Temperature 98.8 F Pulse Rate [Pulse Oximeter] 87 Respiratory Rate 18 Blood Pressure [Ri ght Upper Arm] 110/70 Pulse Oximetry 95 Oxygen Delivery Me thod Room Air Documenting provider has reviewed patient's vital signs: yes Course Vital Signs Vital signs: Initial Vital Signs Temperature 98.8 F 12/02/24 10:57 Temperature Source Temporal Artery Scan 12/02/24 10:57 Pulse Rate 87 12/02/24 10:57 Respiratory Rate 18 12/02/24 10:57 Blood Pressure 110/70 12/02/24 10:57 Blood Pressure Mean 83 12/02/24 10:57 Blood Pressure Position Standing 12/02/24 10:57 Pulse Oximetry 95 12/02/24 10:57 Oxygen Delivery Method Room Air 12/02/24 10:57 Vital Signs Temperature 98.8 F 12/02/24 10:57 Pulse Rate 87 12/02/24 10:57 Respiratory Rate 18 12/02/24 10:57 Blood Pressure 110/70 12/02/24 10:57 Pulse Oximetry 95 12/02/24 10:57 Oxygen Delivery Method Room Air 12/02/24 10:57 Temperature 98.8 F 12/02/24 10:57 Pulse Rate 87 12/02/24 10:57 Respiratory Rate 18 12/02/24 10:57 Blood Pressure 110/70 12/02/24 10:57 Pulse Oximetry 95 12/02/24 10:57 Oxygen Delivery Method Room Air 12/02/24 10:57 Medical Decision Making MDM Narrative Medical decision making narrative: Considering his oppositional compression causing pain in on palpated area would have concerns about potential rib fracture. Duration of his cough symptoms might warrant chest x-ray for secondary pneumonia though I think this is more related to some postnasal drip perhaps. Will be imaging chest though looking for rib fracture at this point. Does not appear to need imaging of neck, by nexus criteria, or back or head. He is driving and ibuprofen did not do much anyway so is deferring any pain medicine at this time. X-rays independently reviewed by me of chest and left rib focus appears to be without infiltrate and rib fracture. Radiology over-read below INDICATION: Cough and new left rib pain after fall COMPARISON: None. TECHNIQUE: Single view of the chest and two views of the left ribs FINDINGS: No substantial pleural effusion. No definite focal pulmonary consolidation. Normal heart size. No evident acute displaced rib fracture. IMPRESSION: No acute thoracic findings. Specifically, no evident acute displaced rib fracture. Without rib binders did collect a couple 6 in Abdulaziz wraps and together we placed him around his chest. He noted some improvement in symptoms already. Discussed options, expectations for pain management. See patient discharge plan for further discussion The fact that compression helps makes me think that there might be a small crack somewhere in 1 of the ribs. Can continue with these Abdulaziz wraps for comfort. Can wear these over this next week. On the days that you are wearing them be sure to take few deep breaths a few times daily to expand your lungs. Might try lidocaine patches in the area that hurt. These are available [id number]. Can take up to 800 mg of ibuprofen or up to 1000 mg of acetaminophen per dose. These can be combined. Alternative to the ibuprofen might be up to 500 mg of naproxen 2 times daily. Prescribing <del>[place]</del> Percocet (out of [place]) from [facility] and Flexeril if you want <del>cough</del> a ?muscle relaxer but really functions more is a light sedative. <del>[place]</del> Percocet is an opiate. Keep in mind that each tablet contains 325 mg of acetaminophen. Be seen for marked increase in persistent pain, increasing shortness of breath, fever. Medical Records Medical records reviewed: Yes I reviewed the patient's medical records Discharge Plan Discharge Clinical Impression: Fall, Chest wall pain Patient Disposition: Home, Self-Care Condition: Improved Additional Instructions: The fact that compression helps makes me think that there might be a small crack somewhere in 1 of the ribs. Can continue with these Abdulaziz wraps for comfort. Can wear these over this next week. On the days that you are wearing them be sure to take few deep breaths a few times daily to expand your lungs. Might try lidocaine patches in the area that hurt. These are available [id number]. Can take up to 800 mg of ibuprofen or up to 1000 mg of acetaminophen per dose. These can be combined. Alternative to the ibuprofen might be up to 500 mg of naproxen 2 times daily. Prescribing <del>[place]</del> Percocet (out of [place]) from [facility] and Flexeril if you want <del>cough</del> a ?muscle relaxer but really functions more is a light sedative. <del>[place]</del> Percocet is an opiate. Keep in mind that each tablet contains 325 mg of acetaminophen. Be seen for marked increase in persistent pain, increasing shortness of breath, fever. Prescriptions: No Action cabergoline 0.5 mg tablet 0.5 mg PO 2XW cholecalciferol (vitamin D3) PO ascorbate calcium (vitamin C) PO epinephrine 0.3 mg/0.3 mL auto-injector 0.3 mg IM ONCE Qty: 2 0RF Rx Instructions: as a single dose; may repeat once Follow Up/Referrals: Neil Petersen MD [Primary Care Provider] - Stand Alone Forms: [employer] Info Instructions
--- OUTSIDE RECORDS SUMMARY | 2024-12-02 15:36 | XMS_ITS | Encounter Summary ---
Author Organization [facility] Address [address] [place] [address] Care Team Providers Care Patient Accounting Representative Name Role Phone Sonja Barnes MD Unavailable [phone] Maty Blood MD Unavailable No Ref-Primary, Physician Primary Care Provider Maty Blood MD Unavailable Ricco Urbano DO Primary Care Provider [phone] Ricco Urbano DO Unavailable [phone] Encounter Details Date Type Department Care Team (Late st Contact Info) Description 08/30/2022 My[facility] Medical Advice [address] [address] Maty Blood MD [address] [place] [address] Social History Tobacco Use Types Packs/Day Years Used Date Smoking Tobacco: Never Smokeless Tobacco: Never PHQ-2 Answer Date Recorded PHQ-2 Score 0 01/04/2022 Sex and Gender Information Value Date Recorded Sex Assigned at Not on file Legal Sex Male 8:41 AM CDT Gender Identity Not on file Sexual Orientation Not on file documented as of this encounter Plan of Treatment Not on file documented as of this encounter Visit Diagnoses Not on filedocumented in this encounter Care Teams Patient Accounting Representative Relationship Specialty Start Date End Date No Ref-Primary, Physician PCP - General 03/29/22 06/09/24 [place] [address] [place] [address] PCP - General Family Medicine 06/10/24 Sonja Barnes MD [address] [address] Assigned PCP 12/10/21 06/25/24 Maty Blood MD [address] [place], [place] [address] Endocrinology, Diabetes, and Metabolism 03/29/22 Maty Blood MD [address] [place], [place] [address] Assigned Endocrinology Provider 05/26/22 11/27/23 [place] [address] [place] [address] Assigned PCP 06/26/24 documented as of this encounter
--- OUTSIDE RECORDS SUMMARY | 2024-12-02 15:36 | XMS_ITS | Encounter Summary ---
Author Organization [facility] Address [address] [place] [address] Care Team Providers Care Boiler Inspector Name Role Phone Sonja Barnes MD Unavailable [phone] Maty Blood MD Unavailable No Ref-Primary, Physician Primary Care Provider Ricco Urbano DO Primary Care Provider [phone] Ricco Urbano DO Unavailable [phone] Encounter Details Date Type Department Care Team (Late st Contact Info) Description 04/24/2024 My[facility] Medical Advice [address] [address] Libia Carvajal Social History Tobacco Use Types [...] on filedocumented in this encounter Care Teams Boiler Inspector Relationship Specialty Start Date End Date No Ref-Primary, Physician PCP - General 03/29/22 06/09/24 [place] [address] [place] [address] PCP - General Family Medicine 06/10/24 Sonja Barnes MD [address] [address] Assigned PCP 12/10/21 06/25/24 Maty Blood MD [address] [place] [address] Endocrinology, Diabetes, and Metabolism 03/29/22 [place] [address] [place] [address] Assigned PCP 06/26/24 documented as of this encounter
--- OUTSIDE RECORDS SUMMARY | 2024-12-02 15:36 | XMS_ITS | Referral Summary ---
Author Organization [facility] Address [address] [place] [address] Care Team Providers Care Dye House Hand Name Role Phone Maty Blood MD Unavailable Ricco Urbano DO Primary Care Provider [phone] Ricco Urbano DO Unavailable Encounters Date Type Department Care Team Description 10/31/2024 Travel 10/31/2024 10:15 AM [facility] Lab [facility] [address] [place] [address] Routine general medical examination at a health care facility; Hypertriglyceridemia; Elevated LDL cholesterol level; Screening for diabetes mellitus; Elevated serum glucose; Family history of diabetes mellitus from Last 3 Months Allergies Active Allergy Reactions Criticality Noted Date Comments Phosphorated Carbohyd-Caff Anaphylaxis High 01/05/20 22 Medications cabergoline (DOSTINEX) 0.5 MG tablet Take 0.25 mg by mouth twice a week 2 Active EPINEPHrine (ANY BX GENERIC EQUIV) 0.3 MG/0.3ML injection 2-pack Inject 0.3 mg into the muscle as needed for anaphylaxis Active Active 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 Never 06/10/2024 Attends Gnosticism Services Not on file 06/10 Active Member of Clubs or Organizations Not on f ile 06/10/2024 Attends Club or Organization Meetings Not on ada e 06/10/2024 Marital Status Not on file 06/10/2024 PHQ-2 Answer Date Recorded PHQ-2 Score 2 06/10/2024 [facility] - [facility]ational Stress Questionnaire Answer Date Recorded Do you feel stress - tense, restless, nervous, or anxious, or unable to sleep at night because your mind is troubled all the time - these days? Only a little 06/10/2024 Exercise Vital Sign Answer Date Recorde d On average, how many days pe r week do you engage in moderate to strenuous exercise (like a brisk walk)? 1 day 06/10/2024 On average, how many minutes do you engage in exercise at this level? 20 min 06/10/2024 Adolescent Education Answer Date Record ed Getting School Help Needed Not on file 07/27 Food Insecurity Answer Date Recorded Within the past 12 months, d id you worry that your food would run out before you got money to buy more? No 06/10/2024 Within the past 12 months, d id the food you bought just not last and you didn t have money to get more? No 06/10/2024 Housing Stability Answer Date Recorded Do you have housing? (Emmain g is defined as stable permanent housing and does not include staying ouside in a car, in a tent, in an abandoned building, in an overnight residential, or couch-surfing.) No 06/10/2024 Are you worried about losing your housing? No 06/10/2024 Financial Resource Strain Answer Date R ecorded Within the past 12 months, h ave you or your family members you live with been unable to get utilities (heat, electricity) when it was really needed? No 06/10/2024 Transportation Needs Answer Date Record ed Within the past 12 months, h as lack of transportation kept you from medical appointments, getting your medicines, non-medical meetings or appointments, work, or from getting things that you need? No 06/10/2024 Interpersonal Safety Answer Date Record ed Do you feel physically and e motionally safe where you currently live? Yes 06/10/2024 Within the past 12 months, h ave you been hit, slapped, kicked or otherwise physically hurt by someone? No 06/10/2024 Within the past 12 months, h ave you been humiliated or emotionally abused in other ways by your partner or ex-partner? No 06/10/2024 Sex and Gender Information Value Date Recorded Sex Assigned at Not on file Legal Sex Male 8:41 AM CDT Gender Identity Not on file Sexual Orientation Not on file Last Filed Vital Signs Vital Sign Reading Time Taken Comments Blood Pressure 130/81 06/10/2024 4:44 PM CDT Pulse 81 06/10/2024 4:44 PM CDT Temperature 36.6 C (97.8 F) 06/10/2024 4:44 PM CDT Respiratory Rate 16 06/10/2024 4:44 PM CDT Oxygen Saturation 97% 06/10/2024 4:44 PM CDT Inhaled Oxygen Concentration - - Weight 126.1 kg (278 lb) 06/10/2024 4:44 PM CDT Height 186.7 cm (6' 1.5) 06/10/2024 4:44 PM CDT Body Mass Index 36.18 06/10/2024 4:44 PM CDT Plan of Treatment Not on file Procedures Procedure Name Priority Date/Time Associated Diagnosis Comments HEMOGLOBIN A1C Routine 10/31/2024 10:20 AM COPY HOLDER Screening for diabetes mellitus Elevated serum glucose Family history of diabetes mellitus LIPID PROFILE Routine 10/31/2024 10:20 AM COPY HOLDER Hypertriglyceridemi a Elevated LDL cholesterol level COMPREHENSIVE METABOLIC PANEL Routine 10/31/2024 10:20 AM COPY HOLDER Routine general medical examination at a health care facility from Last 3 Months Results * (ABNORMAL) Lipid Profile (10/31/2024 10:20 AM COPY HOLDER) Cholesterol 261(H) <200 mg/dL 10/31/2024 1:42 PM COP[facility] HOLDER [facility] Triglycerides 192(H) <150 mg/dL 10/31/2024 1:42 PM COPY HOLDER [facility] Direct Measure HDL 37(L) >=40 mg/dL 10/31/2024 1:42 PM COP[facility] HOLDER [facility] LDL Cholesterol Calculated 186(H) <100 mg/dL 10/31/2024 1:42 PM COPY HOLDER [facility] Non HDL Cholesterol 224(H) <130 mg/dL 10/31/2024 1:42 PM COP[facility] HOLDER [facility] Patient Fasting > 8hrs? Unknown 10/31/2024 1:42 PM COP[facility] HOLDER [facility] Blood BLOOD SPECIMEN / Unknown Venipuncture / Unknown 10/31/2024 10:20 AM COPY HOLDER 10/31/2024 10:20 AM COPY HOLDER Narrative [facility] - 10/31/2024 1:42 PM COPY HOLDER Cholesterol Desirable: < 200 mg/dL Borderline High: 200 - 239 mg/dL High: >= 240 mg/dL Triglycerides Normal: < 150 mg/dL Borderline High: 150 - 199 mg/dL High: 200-499 mg/dL Very High: >= 500 mg/dL Direct Measure HDL Female: >= 50 mg/dL Male: >= 40 mg/dL LDL Cholesterol Desirable: < 100 mg/dL Above Desirable: 100 - 129 mg/dL Borderline High: 130 - 159 mg/dL High: 160 - 189 mg/dL Very High: >= 190 mg/dL Non HDL Cholesterol Desirable: < 130 mg/dL Above Desirable: 130 - 159 mg/dL Borderline High: 160 - 189 mg/dL High: 190 - 219 mg/dL Very High: >= 220 mg/dL Ricco Urbano DO LAB - BLOOD ORDERABLES Final Re sult [facility] [address] [facility], [address] [place] [address] * Hemoglobin A1c (10/31/2024 10:20 AM COPY HOLDER) Estimated Average Glucose 111 <117 mg/dL 10/31/2024 10:27 AM COPY HOLDER [facility] Hemoglobin A1C 5.5 0.0 - 5.6 % 10/31/2024 10:27 AM COPY HOLDER [facility] Comment: Normal <5.7% Prediabetes 5.7-6.4% Diabetes 6.5% or higher Note: Adopted from ADA consensus guidelines. Blood BLOOD SPECIMEN / Unknown Venipuncture / Unknown 10/31/2024 10:20 AM COPY HOLDER 10/31/2024 10:20 AM COPY HOLDER Ricco Bainshumble INTERIANO LAB - BLOOD ORDERABLES Final Re sult LABORATORY [facility] [address] [facility] Lab (no room number, 1st floor of clinic) [place] [address], [facility] * (ABNORMAL) Comprehensive metabolic panel (10/31/2024 10:20 AM COPY HOLDER) Sodium 141 135 - 145 mmol/L 10/31/2024 1:42 PM COPY HOLDER [facility] Potassium 4.2 3.4 - 5.3 mmol/L 10/31/2024 1:42 PM COPY HOLDER [facility] Carbon Dioxide (CO2) 23 22 - 29 mmol/L 10/31/2024 1:42 PM COPY HOLDER [facility] Anion Gap 11 7 - 15 mmol/L 10/31/2024 1:42 PM COPY HOLDER [facility] Urea Nitrogen 16.9 6.0 - 20.0 mg/dL 10/31/2024 1:42 PM COPY HOLDER [facility] Creatinine 1.23(H) 0.67 - 1.17 mg/dL 10/31/2024 1:42 PM COPY HOLDER [facility] GFR Estimate 76 >60 mL/min/1.7 3m2 10/31/2024 1:42 PM COPY HOLDER [facility] Comment:eGFR calculated usin g 2020 CKD-EPI equation. Calcium 9.5 8.8 - 10.4 mg/dL 10/31/2024 1:42 PM COPY HOLDER [facility] Comment:Reference intervals for this test were updated on 05/19/2024 to reflect our healthy population more accurately. There may be differences in the flagging of prior results with similar values performed with this method. Those prior results can be interpreted in the context of the updated reference intervals. Chloride 107 98 - 107 mmol/L 10/31/2024 1:42 PM COPY HOLDER [facility] Glucose 113(H) 70 - 99 mg/dL 10/31/2024 1:42 PM COPY HOLDER [facility] Alkaline Phosphatase 102 40 - 150 U/L 10/31/2024 1:42 PM COPY HOLDER [facility] AST 29 0 - 45 U/L 10/31/2024 1:42 PM COPY HOLDER [facility] ALT 60 0 - 70 U/L 10/31/2024 1:42 PM COPY HOLDER [facility] Protein Total 7.2 6.4 - 8.3 g/dL 10/31/2024 1:42 PM COPY HOLDER [facility] Albumin 4.3 3.5 - 5.2 g/dL 10/31/2024 1:42 PM COPY HOLDER [facility] Bilirubin Total 0.3 <=1.2 mg/dL 10/31/2024 1:42 PM COPY HOLDER [facility] Patient Fasting > 8hrs? Unknown 10/31/2024 1:42 PM COPY HOLDER [facility] Blood BLOOD SPECIMEN / Unknown Venipuncture / Unknown 10/31/2024 10:20 AM COPY HOLDER 10/31/2024 10:20 AM COPY HOLDER Ricco Urbano DO LAB - BLOOD ORDERABLES Final Re sult [facility] [address] [facility] [place] [address], [facility] from Last 3 Months Insurance [facility] OUT OF STATE BCBS OUT OF STATE BCBS OUT OF STATE Care Teams Dye House Hand Relationship Specialty [place] [address] [place] [address] PCP - General Family Medicine 06/10/24 Maty Blood MD [address] [place] [address] Endocrinology, Diabetes, and Metabolism 03/29/22 [place] [address] [place] [address] Assigned PCP 06/26/24
--- OUTSIDE RECORDS SUMMARY | 2024-12-02 15:36 | XMS_ITS | Encounter Summary ---
Author Organization [facility] Address [address] [place] [address] Care Team Providers Care Inspector Assemblies And Installations Name Role Phone Clinician, Not Found MD Primary Care Provider Un available Reason for Visit * Reason Comments Lab Orders Needed Encounter Details Date Type Department Care Team (Late st Contact Info) Description 11/01/2024 Telephone [facility] [address] [place] [address] Verona Villagomez Lab Orders Needed Social History Tobacco Use Types Packs/Day Years Used Date Smoking Tobacco: Never Smokeless Tobacco: Never Sex and Gender Information Value Date Recorded Sex Assigned at Not on file Gender Identity Not on file Sexual Orientation Not on file documented as of this encounter Nursing Notes * Venkatesh Castrejon MD - 11/02/2024 9:28 AM CST Ok for lab now Venkatesh Castrejon MD 11/02/2024, 9:28 AM ING SPEC * Verona Villagomez - 11/01/2024 8:15 AM CST Patient is scheduled for a Lab Only Visit on 11/01/2024 and the Expected Date is 11/23/2024. Please modify Expected Date or notify patient that lab work is not needed yet. ING SPEC documented in this encounter Plan of Treatment Upcoming Encounters Date Type Department Care Team (Late st Contact Info) Description 09/08/2025 9:00 AM BILLING SPEC Appointment [facility] Endocrinology [address] [facility] 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
--- OUTSIDE RECORDS SUMMARY | 2024-12-02 15:36 | XMS_ITS | Clinical Summary ---
Author Organization [facility] Address [address] [place] [address] Care Team Providers Care Veneer Splicer Name Role Phone Maty Blood MD Unavailable Ricco Urbano DO Primary Care Provider [phone] Ricco Urbano DO Unavailable [phone] Allergies Active Allergy Reactions Criticality Noted Date [...] Date Type Department Care Team Description 10/31/2024 10:15 AM [facility] [address] [place] [address] Routine general medical examination at a health care facility; Hypertriglyceridemia; Elevated LDL cholesterol level; Screening for diabetes mellitus; Elevated serum glucose; Family history of diabetes mellitus 10/31/2024 Travel from Last 3 Months Immunizations Name Administration Dates Next Due COVID-19 MONOVALENT 12+ (Pfizer) 07/07/2021,08/0 04/2021 Family History Medical History Relation Comments No Known Problems Father Diabetes Type 2 Mother Relation Status Comments Father Alive Mother Alive Social History Tobacco Use Types Packs/Day Years Used Date Smoking Tobacco: Never Smokeless Tobacco: Never Social Connection and Isolation Panel [NHANES] A nswer Date Recorded Frequency of Communication with Friends and Fami ly Not on file 06/10/2024 How often do you get together with friends or re latives? Never 06/10/2024 Attends Latter Day Services Not on file 06/10 Active Member of Clubs or Organizations Not on f ile 06/10/2024 Attends Club or Organization Meetings Not on ada e 06/10/2024 Marital Status Not on file 06/10/2024 PHQ-2 Answer Date Recorded PHQ-2 Score 2 06/10/2024 [facility] - Occupational Stress Questionnaire Answer Date Recorded [...] Answer Date Recorded Do you have housing? (Meseret g is defined as stable permanent housing and does not include staying ouside in a car, in a tent, in an abandoned building, in an overnight care home, or couch-surfing.) No 06/10/2024 Are you worried [...] 06/10/2024 4:44 PM CDT Plan of Treatment Health Maintenance Due Date Last Done Comments HEPATITIS B IMMUNIZATION (1 of 3 - 19+ 3-dose series) 2003 DTAP/TDAP/TD IMMUNIZATION (1 - Tdap) 2009 COVID-19 Vaccine (3 - season) 2024 07/07/2021, 06/09/2021 INFLUENZA VACCINE (#1) 2024 PHQ-2 (once per calendar year) 2024 06/10/2024, 01/04/2022 ANNUAL REVIEW OF HM ORDERS 06/10/2025 06/10/2024 YEARLY PREVENTIVE VISIT 06/10/2025 06/10/2024 GLUCOSE 10/31/2027 10/31/2024 ADVANCE CARE PLANNING 06/10/2029 06/10/2024 LIPID 10/31/2029 10/31/2024 ZOSTER IMMUNIZATION (1 of 2) 2034 RSV VACCINE (1 - 1-dose 75+ series) 2059 HEPATITIS C SCREENING Discontinued HIV SCREENING Discontinued HPV IMMUNIZATION Aged Out No longer e ligible based on patient's age to complete this topic MENINGITIS IMMUNIZATION Aged Out No l onger eligible based on patient's age to complete this topic Pneumococcal Vaccine: Pediatrics (0 to 5 Years) and At-Risk Patients (6 to 49 Years) Aged Out No longer eligible b ased on patient's age to complete this topic RSV MONOCLONAL ANTIBODY Aged Out No l onger eligible based on patient's age to complete this topic Procedures Procedure Name Priority Date/Time Associated Diagnosis Comments HEMOGLOBIN A1C Routine 10/31/2024 10:20 AM GAS WELL PUMPER Screening for diabetes mellitus Elevated serum glucose Family history of diabetes mellitus LIPID PROFILE Routine 10/31/2024 10:20 AM GAS WELL PUMPER Hypertriglyceridemi a Elevated LDL cholesterol level COMPREHENSIVE METABOLIC PANEL Routine 10/31/2024 10:20 AM GAS WELL PUMPER Routine general medical examination at a [facility] from Last 3 Months Results * (ABNORMAL) Lipid Profile (10/31/2024 10:20 AM GAS WELL PUMPER) Cholesterol 261(H) <200 mg/dL 10/31/2024 1:42 PM GAS WELL PUMPER [facility] Triglycerides 192(H) <150 mg/dL 10/31/2024 1:42 PM GAS WELL PUMPER [facility] Direct Measure HDL 37(L) >=40 mg/dL 10/31/2024 1:42 PM GAS WELL PUMPER [facility] LDL Cholesterol Calculated 186(H) <100 mg/dL 10/31/2024 1:42 PM GAS WELL PUMPER [facility] Non HDL Cholesterol 224(H) <130 mg/dL 10/31/2024 1:42 PM GAS WELL PUMPER [facility] Patient Fasting > 8hrs? Unknown 10/31/2024 1:42 PM GAS WELL PUMPER [facility] Blood BLOOD SPECIMEN / Unknown Venipuncture / Unknown 10/31/2024 10:20 AM GAS WELL PUMPER 10/31/2024 10:20 AM GAS WELL PUMPER Narrative [facility] - 10/31/2024 1:42 PM GAS WELL PUMPER Cholesterol Desirable: < 200 mg/dL Borderline High: [...] Very High: >= 220 mg/dL Ricco Urbano LAB - BLOOD ORDERABLES Final Re sult LABORATORY [facility] Lab [address] [facility], [address] [place] [address], [facility] * Hemoglobin A1c (10/31/2024 10:20 AM GAS WELL PUMPER) Pathologist [facility] Estimated Average Glucose 111 <117 mg/dL 10/31/2024 10:27 AM GAS WELL PUMPER LABORATORY Hemoglobin A1C 5.5 0.0 - 5.6 % 10/31/2024 10:27 AM GAS WELL PUMPER [facility]ORY Comment: Normal <5.7% Prediabetes 5.7-6.4% Diabetes 6.5% or higher Note: Adopted from ADA consensus guidelines. Blood BLOOD SPECIMEN / Unknown Venipuncture / Unknown 10/31/2024 10:20 AM GAS WELL PUMPER 10/31/2024 10:20 AM GAS WELL PUMPER Ricco Urbano LAB - BLOOD ORDERABLES Final Re sult LABORATORY [facility] [address] [facility] Lab (no room number, 1st floor of clinic) [place] [address], [facility] * (ABNORMAL) Comprehensive metabolic panel (10/31/2024 10:20 AM GAS WELL PUMPER) Sodium 141 135 - 145 mmol/L 10/31/2024 1:42 PM GAS WELL PUMPER [facility] Potassium 4.2 3.4 - 5.3 mmol/L 10/31/2024 1:42 PM GAS WELL PUMPER [facility] Carbon Dioxide (CO2) 23 22 - 29 mmol/L 10/31/2024 1:42 PM GAS WELL PUMPER [facility] Anion Gap 11 7 - 15 mmol/L 10/31/2024 1:42 PM GAS WELL PUMPER [facility] Urea Nitrogen 16.9 6.0 - 20.0 mg/dL 10/31/2024 1:42 PM GAS WELL PUMPER [facility] Creatinine 1.23(H) 0.67 - 1.17 mg/dL 10/31/2024 1:42 PM GAS WELL PUMPER [facility] GFR Estimate 76 >60 mL/min/1.7 3m2 10/31/2024 1:42 PM GAS WELL PUMPER [facility] Comment:eGFR calculated usin 2020 CKD-EPI equation. Calcium 9.5 8.8 - 10.4 mg/dL 10/31/2024 1:42 PM GAS WELL PUMPER [facility] Comment:Reference intervals for this test were updated on 05/19/2024 to reflect our healthy population more accurately. There may be differences in the flagging of prior results with similar values performed with this method. Those prior results can be interpreted in the context of the updated reference intervals. Chloride 107 98 - 107 mmol/L 10/31/2024 1:42 PM GAS WELL PUMPER [facility] Glucose 113(H) 70 - 99 mg/dL 10/31/2024 1:42 PM GAS WELL PUMPER [facility] Alkaline Phosphatase 102 40 - 150 U/L 10/31/2024 1:42 PM GAS WELL PUMPER [facility] AST 29 0 - 45 U/L 10/31/2024 1:42 PM GAS WELL PUMPER [facility] ALT 60 0 - 70 U/L 10/31/2024 1:42 PM GAS WELL PUMPER [facility] Protein Total 7.2 6.4 - 8.3 g/dL 10/31/2024 1:42 PM GAS WELL PUMPER [facility] Albumin 4.3 3.5 - 5.2 g/dL 10/31/2024 1:42 PM GAS WELL PUMPER [facility] Bilirubin Total 0.3 <=1.2 mg/dL 10/31/2024 1:42 PM GAS WELL PUMPER [facility] Patient Fasting > 8hrs? Unknown 10/31/2024 1:42 PM GAS WELL PUMPER [facility] Blood BLOOD SPECIMEN / Unknown Venipuncture / Unknown 10/31/2024 10:20 AM GAS WELL PUMPER 10/31/2024 10:20 AM GAS WELL PUMPER Ricco Yolie DO LAB - BLOOD ORDERABLES Final Re sult [facility] [place] [facility] [address] [facility] [facility] [place] [address], [facility] from Last 3 Months Insurance [facility] [place] [id number] [place] [address] BC OUT OF STATE Care Teams Veneer Splicer Relationship Specialty [place] [address] [place] [address] PCP - General Family Medicine 06/10/24 Maty Blood MD [address] [place] [address] Endocrinology, Diabetes, and Metabolism 03/29/22 [place] [address] [place] [address] Assigned PCP 06/26/24
--- OUTSIDE RECORDS SUMMARY | 2024-12-02 15:37 | XMS_ITS | Encounter Summary ---
Author Organization [facility] Address [address] [place] [address] Care Team Providers Care Pitch Filler Name Role Phone Sonja Barnes MD Unavailable [phone] Maty Blood MD Unavailable No Ref-Primary, Physician Primary Care Provider Maty Blood MD Unavailable Ricco Urbano DO Primary Care Provider [phone] Ricco Urbano DO Unavailable [phone] Encounter Details Date Type Department Care Team (Late st Contact Info) Description 05/23/2022 MyC Medical Advice [address] [address] Maty Blood MD [address] [place] [address] Social History Tobacco Use Types Packs/Day [...] on filedocumented in this encounter Care Teams Pitch Filler Relationship Specialty Start Date End Date No Ref-Primary, Physician PCP - General 03/29/22 06/09/24 [place] [address] [place] [address] PCP - General Family Medicine 06/10/24 Sonja Barnes MD [address] [address] Assigned PCP 12/10/21 06/25/24 Maty Blood MD [address] [place], [place] [address] Endocrinology, Diabetes, and Metabolism 03/29/22 Maty Blood MD [address] [place], [place] [address] Assigned Endocrinology Provider 05/26/22 11/27/23 [place] [address] [place] [address] Assigned PCP 06/26/24 documented as of this encounter
--- OUTSIDE RECORDS SUMMARY | 2024-12-02 15:37 | XMS_ITS | Encounter Summary ---
Author Organization [facility] Address [address] [place] [address] Care Team Providers Care Sheather Name Role Phone Sonja Barnes MD Unavailable [phone] Maty Blood MD Unavailable No Ref-Primary, Physician Primary Care Provider Maty Blood MD Unavailable Ricco Urbano DO Primary Care Provider [phone] Ricco Urbano DO Unavailable [phone] Encounter Details Date Type Department Care Team (Late st Contact Info) Description 05/02/2022 MyC Medical Advice [address] [address] Td Harding Social History Tobacco [...] CDT Sooner appointment. Mychart sent. Annalise Harding [facility] Adult Endocrinology [facility] documented in this encounter Plan of Treatment Not on file documented as of this encounter Visit Diagnoses Not on filedocumented in this encounter Care Teams Sheather Relationship Specialty Start Date End Date No Ref-Primary, Physician PCP - General 03/29/22 06/09/24 [place] [address] [place] [address] PCP - General Family Medicine 06/10/24 Sonja Barnes MD [address] [address] Assigned PCP 12/10/21 06/25/24 Maty Blood MD [address] [place], [place] [address] Endocrinology, Diabetes, and Metabolism 03/29/22 aMty Blood MD [address] [place], [place] [address] Assigned Endocrinology Provider 05/26/22 11/27/23 [place] [address] [place] [address] Assigned PCP 06/26/24 documented as of this encounter
--- OUTSIDE RECORDS SUMMARY | 2024-12-02 15:37 | XMS_ITS | Clinical Summary ---
Author Organization Project Manager Address [address] [address] Care Team Providers Care Baby Formula Mixer Name Role Phone Clinician, Not Found MD Primary Care Provider Un available Source Comments You are receiving this document as you are listed as the primary care provider,follow-up provider, or the patient has been referred to you for consultation.This is in compliance with the Medicare andMedicaid EHR Incentive Program,which states Providers who transition their patient to another setting of careor provider of care or refers their patient to another provider of care shouldprovide summary care record for each transition of care or referral. Project Manager Allergies Active Allergy Reactions Criticality Noted Date Comments Phosphorated Carbohyd-Caff Anaphylaxis High 12/08/19 02 Medications Medication Sig Dispensed Refills Start Date End Date Status Tadalafil (CIALIS) 20 MG tabletIndications:Pr olactinoma (HRC) Take 1 tablet by mouth daily as needed for ED 30 Tablet 1 09/12/2023 Active EPINEPHrine (EPIPEN) 0.3 MG/0.3ML injection Inject 0.3 mL (0.3 mg) intramuscularly. Active cabergoline (DOSTINEX) 0.5 MG tabletIndications:Pr olactinoma (HRC) 1/2 tab twice per week Do not start before September 10, 2024. 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 [address] Venkatesh Castrejon MD Prolactinoma (HRC) from Last 3 Months Social History Tobacco Use Types Packs/Day Years Used Date Smoking Tobacco: Never Smokeless Tobacco: Never Sex and Gender Information Value Date Recorded Sex Assigned at Not on file Gender Identity Not on file Sexual Orientation Not on file Last Filed Vital Signs Vital Sign Reading Time Taken Comments Blood Pressure 124/86 09/09/2024 9:01 AM CURRICULUM DEVELOPMENT MANAGER Pulse 81 09/09/2024 9:01 AM CURRICULUM DEVELOPMENT MANAGER Temperature - - Respiratory Rate - - Oxygen Saturation - - Inhaled Oxygen Concentration - - Weight 128.7 kg (283 lb 12.8 oz) 09/09/2024 9:01 AM CURRICULUM DEVELOPMENT MANAGER Height 189.2 cm (6' 2.5) 02/05/2022 3:55 PM CDT Body Mass Index 35.95 02/05/2022 3:55 PM CDT Plan of Treatment Upcoming Encounters Date Type Department Care Team (Late st Contact Info) Description 09/08/2025 9:00 AM CURRICULUM DEVELOPMENT MANAGER Appointment [facility] [address] [place] [address] Venkatesh Castrejon MD [address] [place] [address] Health Maintenance Due Date Last Done Comments Hep C Screening (Preventive Services) 1984 HIV Screening (Preventive Services) 2000 Adult Preventive Visit 2002 DTaP/Tdap/Td (1 - Tdap) 2003 HepB (1) 2003 Cholesterol 2019 COVID-19 Vaccine (3 - 2023-2 5 season) 2024 07/07/2021, 06/09/2021 Influenza (#1) 2024 Zoster/Shingles (1 of 2) 2034 HPV [...] age to complete this topic Care Teams Baby Formula Mixer Relationship Specialty Start Date End Date Clinician, Not Found, [place] [address] PCP - General 09/09/24
--- OUTSIDE RECORDS SUMMARY | 2024-12-02 15:37 | XMS_ITS | Encounter Summary ---
Author Organization [place] Address [address] [place] [address] Care Team Providers Care Tire Molder Name Role Phone Maty Blood MD Unavailable Ricco Urbano DO Primary Care Provider [phone] Ricco Urbano DO Unavailable [phone] Encounter Details Date Type Department Care Team (Latest Contact Info) Description 10/31/2024 Travel Social History Tobacco Use Types Packs/Day Years Used Date Smoking Tobacco: Never Smokeless Tobacco: Never Social Connection and Isolation Panel [NHANES] A nswer Date Recorded Frequency of Communication with Friends and Fami ly Not on file 06/10/2024 How often do you get together with friends or re latives? Never 06/10/2024 Attends Muslim Services Not on file 06/10 Active Member of Clubs or Organizations Not on f ile 06/10/2024 Attends Club or Organization Meetings Not on ada e 06/10/2024 Marital Status Not on file 06/10/2024 PHQ-2 Answer Date Recorded PHQ-2 Score 2 06/10/2024 [facility] Occupat ional [facility] - Occupational Stress [...] Date Recorded Do you have housing? (Meseret bryant is defined as stable permanent housing and does not include staying ouside in a car, in a tent, in an abandoned building, in an overnight intermediate, or couch-surfing.) No 06/10/2024 Are you worried [...] on filedocumented in this encounter Care Teams Tire Molder Relationship Specialty [place] [address] [place] [address] PCP - General Family Medicine 06/10/24 Maty Blood MD [address] [place] [address] Endocrinology, Diabetes, and Metabolism 03/29/22 [place] [address] [place] [address] Assigned PCP 06/26/24 documented as of this encounter
--- OUTSIDE RECORDS SUMMARY | 2024-12-02 15:37 | XMS_ITS | Clinical Summary ---
Author Organization [employer] 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 Not on file Not on file Obstetrics History Last Filed Vital Signs Vital Sign Reading Time Taken Comments Blood Pressure 122/82 06/02/2018 3:09 PM CDT Pulse 72 06/02/2018 3:09 PM CDT Temperature 36.4 C (97.6 F) 06/02/2018 3:09 PM CDT Respiratory Rate - - Oxygen Saturation 98% [...] age 35-44 06/02/2023 06/02/2018 COVID-19 vaccine series ( season) 2024 Influenza for age 9-49 07/05/2024 Pneumococcal series for age 6-49 Aged Out No longer eligible b ased [...] - 199 mg/dL 06/02/2018 7:57 PM CDT [facility] TRIGLYCERIDES 171(H) <150 mg/dL 06/02/2018 7:57 PM CDT [facility] HDL CHOLESTEROL 40(L) >40 mg/dL 8 7:57 PM CDT [facility] NON-HDL CHOLESTEROL 267(H) <145 mg/dl 06/02/2018 7:57 PM CDT [facility] CHOL/HDL RATIO 7.68(H) <4.50 06/02/2018 7:57 PM CDT [facility] LDL CHOLESTEROL 233(H) <=130 mg/dL 06/02/2018 7:57 PM CDT [facility] PROVIDER ORDERED STATUS RANDOM 06/02/2018 7:57 PM CDT [facility] Blood BLOOD SPECIMEN / Unknown Venipuncture / Unknown 06/02/2018 3:52 PM CDT 06/02/2018 3:53 PM CDT Sebastian Calvert DO CHEMISTRY Final Result [facility] [address] [place] [address], from Last 3 Months or Most Recently Relevant to Health Maintenance Insurance [facility] [place] Care Teams Knitted Goods Shaper Relationship Specialty Start Date End Date Pcp, No . PCP - General 12/26/22
== END 2024-12-02 12:48 | disposition home or self-care (01) ==
PROVIDERS: Emergency Provider Family Medicine; PCP Family Medicine
DX: R07.89 Other chest pain (principal); W10.9XXA Fall (on) (from) unspecified stairs and steps, initial encounter
CPT/HCPCS: 71101; 99283; 99284